=== PATIENT | female | born 1995 | race Caucasian/White ===

== ENCOUNTER 2021-07-22 14:27 | Emergency (ER) | payer SELFPAY ==
[2021-07-22 14:43] VITALS: BP 133/81; PULSE 90
[2021-07-22] MEDS ORDERED: methylPREDNISolone Sodium Succinate 125 MG/2 ML SDV IM ONE (15:30)
== END 2021-07-22 16:00 | disposition home or self-care (01) ==
LOC: DL.ED 14:27
DX: S39.012A Strain of muscle, fascia and tendon of lower back, initial encounter (principal); Z72.0 Tobacco use; X50.0XXA Overexertion from strenuous movement or load, initial encounter
CPT/HCPCS: 96372; 99283; J2930

== ENCOUNTER 2023-01-20 17:39 | Emergency (ER) | payer OTHER ==
[2023-01-20 18:00] VITALS: BP 126/64; PULSE 102
== END 2023-01-20 19:01 | disposition home or self-care (01) ==
LOC: DL.ED 17:39
DX: M25.562 Pain in left knee (principal); F17.210 Nicotine dependence, cigarettes, uncomplicated
CPT/HCPCS: 73562-LT; 99283

== ENCOUNTER 2023-04-16 11:45 | Observation (INO) | payer OTHER ==
[2023-04-16] MEDS ORDERED: Carboprost Tromethamine 250 MCG/1 ML Amp IM PRN (12:16)
[2023-04-16] MEDS ORDERED: Ondansetron 4 MG/2 ML SDV IVPUSH PRN (12:16)
[2023-04-16] MEDS ORDERED: Sodium Chloride 0.9% 10 ML Syringe FLUSH PRN ×2 (12:16→18:51)
[2023-04-16] MEDS ORDERED: Acetaminophen 325 MG Tab PO PRN (12:16)
[2023-04-16] MEDS ORDERED: Misoprostol 400 MCG (4 X 100 MCG TAB) RECTAL PRN (12:16)
[2023-04-16] MEDS ORDERED: Methylergonovine 0.2 MG/1 ML Amp IM PRN (12:16)
[2023-04-16] MEDS ORDERED: Lactated Ringers 1,000 ML IV ONE (12:16)
[2023-04-16] MEDS ORDERED: Tranexamic Acid 1,000 MG in Sodium Chloride 0.9% 100 ML IV PRN (12:16)
[2023-04-16] MEDS ORDERED: fentaNYL 100 MCG/2 ML SDV IVPUSH PRN (12:16)
[2023-04-16] MEDS ORDERED: Lidocaine 1% 30 ML SDV INJECT ONE (12:16)
[2023-04-16] MEDS ORDERED: Oxytocin/Normal Saline 30 UNIT/500 ML BAG IV SCH (12:30)
[2023-04-16] MEDS: Lactated Ringers 1,000 ML IV SCH ×2 (12:49→14:12)
[2023-04-16 13:01] LABS: HEMATOCRIT 35.9 % (37.0-47.0); HEMOGLOBIN 11.9 g/dL (12.0-16.0); MEAN CORPUSCULAR HEMOGLOBIN 30.9 pg (27.0-34.0); MEAN CORPUSCULAR HGB CONC 33.1 g/dL (33.0-35.0); MEAN CORPUSCULAR VOLUME 93.2 fL (80-100); RED BLOOD CELL COUNT 3.85 10^6/uL (4.2-5.4); WHITE BLOOD CELL COUNT,WBC 20.6 10^3/uL (5.0-10.0)
[2023-04-16] MEDS ORDERED: Bupivacaine 0.25% 10 ML SDV ONE (13:46)
[2023-04-16] MEDS ORDERED: fentaNYL 100 MCG/2 ML SDV ONE (13:46)
[2023-04-16] MEDS ORDERED: ePHEDrine 50 MG/ML SDV IVPUSH PRN (14:08)
[2023-04-16] MEDS ORDERED: Ropivacaine 200 MG in Premix Bag 1 BAG EPIDUR SCH (14:15)
[2023-04-16] MEDS: Phenylephrine HCl In 0.9% NaCl 1 MG/10 ML Syringe IVPUSH PRN ×2 (14:16→14:35)
[2023-04-16] MEDS ORDERED: Witch Hazel Medicated Pads 100/Jar TOP PRN (18:51)
[2023-04-16] MEDS ORDERED: Oxytocin 10 Units/1 ML SDV IM PRN (18:51)
[2023-04-16] MEDS ORDERED: Simethicone 80 MG Tab.Chew PO PRN (18:51)
[2023-04-16] MEDS ORDERED: Zolpidem 5 MG Tab PO PRN (18:51)
[2023-04-16] MEDS ORDERED: Benzocaine/Menthol 20%-0.5% Spray 78 GM Cannister TOP PRN (18:51)
[2023-04-16] MEDS: Docusate Sodium 100 MG Cap PO PRN (20:23)
[2023-04-17] MEDS: Ibuprofen 800 MG Tab PO PRN ×2 (01:20→09:32)
[2023-04-17 06:31] LABS: HEMOGLOBIN 10.4 g/dL (12.0-16.0); MEAN CORPUSCULAR HEMOGLOBIN 30.8 pg (27.0-34.0); MEAN CORPUSCULAR HGB CONC 32.5 g/dL (33.0-35.0); MEAN CORPUSCULAR VOLUME 94.7 fL (80-100); RED BLOOD CELL COUNT 3.38 10^6/uL (4.2-5.4); WHITE BLOOD CELL COUNT,WBC 20.5 10^3/uL (5.0-10.0)
[2023-04-17] MEDS ORDERED: Prenatal Multivitamin with Calcium/Folic Acid/Iron Tab PO SCH (09:00)
[2023-04-17] MEDS: Docusate Sodium 100 MG Cap PO PRN (09:33)
[2023-04-17 20:36] VITALS: BP 110/66; PULSE 58
== END 2023-04-17 19:56 | disposition home or self-care (01) ==
LOC: DL.OBCHECK 11:45 → DL.OB 12:16
PROVIDERS: ADMIT Family Medicine; ATTEND Family Medicine
DX: O69.81X0 Labor and delivery complicated by cord around neck, without compression, not applicable or unspecified (principal); Z37.0 Single live birth; O71.82 Other specified trauma to perineum and vulva; Z86.16 Personal history of COVID-19
CPT/HCPCS: 36415; 51702; 59409; 85027; A9270-GY; J2371; J2405; J2590; J7120

== ENCOUNTER 2023-05-01 17:47 | Emergency (ER) | payer OTHER ==
[2023-05-01 18:10] VITALS: BP 124/70; PULSE 82
== END 2023-05-01 19:12 | disposition home or self-care (01) ==
LOC: DL.ED 17:47
DX: M79.661 Pain in right lower leg (principal); F17.210 Nicotine dependence, cigarettes, uncomplicated; Z79.899 Other long term (current) drug therapy; Z86.16 Personal history of COVID-19
CPT/HCPCS: 93971; 99283

== ENCOUNTER 2023-09-30 18:38 | Emergency (ER) | payer OTHER ==
[2023-09-30] MEDS: Sodium Chloride 0.9% 1,000 ML IV ONE ×2 (19:00→20:20)
[2023-09-30] MEDS: Ondansetron 4 MG/2 ML SDV IVPUSH ONE (19:02)
[2023-09-30 19:03] LABS: BASOPHILS PERCENT AUTO 0.1 % (0.0-1.0); HEMATOCRIT 45.2 % (37.0-47.0); HEMOGLOBIN 15.2 g/dL (12.0-16.0); LYMPHOCYTES PERCENT AUTO 4.9 % (20.5-50.1); MEAN CORPUSCULAR HEMOGLOBIN 30.3 pg (27.0-34.0); MEAN CORPUSCULAR HGB CONC 33.6 g/dL (33.0-35.0); PLATELET COUNT,PLT 307 10^3/uL (150-450); RED BLOOD CELL COUNT 5.02 10^6/uL (4.2-5.4); WHITE BLOOD CELL COUNT,WBC 11.2 10^3/uL (5.0-10.0)
[2023-09-30] MEDS: HYDROmorphone 0.5 MG/0.5 ML Syringe IVPUSH ONE (19:06)
[2023-09-30 19:20] LABS: ALANINE AMINOTRANSFERASE,ALT 33 U/L (14-59); ALBUMIN 4.1 g/dL (3.4-5.0); ALKALINE PHOSPHATASE 86 U/L (46-116); ANION GAP 20.9 mEq/L (7-13); ASPARTATE AMNIOTRANSFERASE,AST 13 U/L (15-37); BILIRUBIN TOTAL 1.5 mg/dL (0.2-1.0); BLOOD UREA NITROGEN,BUN 16 mg/dL (7-18); BUN/CREATININE RATIO 13.8 (No establ ref range); C-REACTIVE PROTEIN 2.01 ng/dL (<=0.50); CALCIUM 9.7 mg/dL (8.5-10.1); CARBON DIOXIDE,CO2 19 mmol/L (21-32); CHLORIDE,CL 101 mmol/L (98-107); CREATININE 1.16 mg/dL (0.55-1.02); EST CRCL DRUG DOSING (CG) 69.59 mL/min; ESTIMATED GFR 65 mL/min (>=60); GLUCOSE RANDOM 118 mg/dL (70-99); LIPASE 28 U/L (16-77); MAGNESIUM 1.8 mg/dL (1.8-2.4); POTASSIUM,K 3.9 mmol/L (3.5-5.1); PROTEIN TOTAL,TP 8.4 g/dL (6.4-8.2); SODIUM,NA 137 mmol/L (136-145)
[2023-09-30 19:25] LABS: HCG QUALITATIVE,SERUM NEGATIVE (NEGATIVE); LACTIC ACID 3.3 mmol/L (0.4-2.0)
[2023-09-30] MEDS: Ondansetron 4 MG/2 ML SDV ONE (19:32)
[2023-09-30] MEDS: Sodium Chloride 0.9% 10 ML Syringe FLUSH PRN (19:34)
[2023-09-30 20:16] LABS: APPEARANCE,URINE CLEAR (CLEAR); BILIRUBIN,URINE NEGATIVE (NEGATIVE); COLOR,URINE YELLOW (YELLOW); GLUCOSE,URINE NEGATIVE (NEGATIVE); KETONES,URINE NEGATIVE (NEGATIVE); LEUKOCYTE ESTERASE,URINE NEGATIVE (NEGATIVE); NITRITE,URINE NEGATIVE (NEGATIVE); OCCULT BLOOD,URINE SMALL (NEGATIVE); PH,URINE 8.5 (5.0-9.0); PROTEIN,URINE NEGATIVE (NEGATIVE); UROBILINOGEN,URINE 0.2 mg/dL (0.2-1.0)
[2023-09-30 20:24] LABS: AMORPHOUS SEDIMENT,URINE FEW /HPF (NOT SEEN); BACTERIA,URINE FEW /HPF (0-FEW/HPF); EPITHELIAL CELLS,URINE MODERATE /HPF (NOT SEEN); MUCUS,URINE FEW /LPF (NOT SEEN); RBC,URINE 0-5 /HPF (0-5); WBC,URINE 0-5 /HPF (0-5/HPF)
[2023-09-30 20:46] VITALS: PULSE 82
[2023-09-30] MEDS: Iopamidol 612 MG/ML 100 ML Bottle IVPUSH ONE (20:53)
[2023-09-30 21:13] VITALS: BP 101/58
[2023-09-30] MEDS: Take Home: Ondansetron 4 MG Tab.DIS, 5 Tab Pack PO ONE (21:37)
== END 2023-09-30 21:41 | disposition home or self-care (01) ==
LOC: DL.ED 18:38
DX: K52.9 Noninfective gastroenteritis and colitis, unspecified (principal); Z86.16 Personal history of COVID-19
CPT/HCPCS: 36415; 74177; 80053; 81001; 83605; 83690; 83735; 84703; 85025; 86140; 96361; 96374; 96375; 99284; J1170; J2405; J7030; Q0162; Q9967; J3490

== ENCOUNTER 2023-12-12 09:28 | Emergency (ER) | payer OTHER ==
[2023-12-12 10:08] VITALS: BP 109/86; PULSE 85
[2023-12-12 10:33] LABS: APPEARANCE,URINE CLEAR (CLEAR); BILIRUBIN,URINE NEGATIVE (NEGATIVE); COLOR,URINE YELLOW (YELLOW); GLUCOSE,URINE NEGATIVE (NEGATIVE); KETONES,URINE NEGATIVE (NEGATIVE); LEUKOCYTE ESTERASE,URINE NEGATIVE (NEGATIVE); NITRITE,URINE NEGATIVE (NEGATIVE); OCCULT BLOOD,URINE TRACE-INTACT (NEGATIVE); PROTEIN,URINE NEGATIVE (NEGATIVE); UROBILINOGEN,URINE 0.2 mg/dL (0.2-1.0)
[2023-12-12 10:43] LABS: AMORPHOUS SEDIMENT,URINE FEW /HPF (NOT SEEN); BACTERIA,URINE MODERATE /HPF (0-FEW/HPF); EPITHELIAL CELLS,URINE MODERATE /HPF (NOT SEEN); MUCUS,URINE MODERATE /LPF (NOT SEEN); RBC,URINE 0-5 /HPF (0-5); WBC,URINE 0-5 /HPF (0-5/HPF)
[2023-12-12 11:01] LABS: BASOPHILS PERCENT AUTO 0.3 % (0.0-1.0); EOSINOPHILS PERCENT AUTO 0.7 % (1.0-3.0); HEMATOCRIT 40.7 % (37.0-47.0); HEMOGLOBIN 13.4 g/dL (12.0-16.0); LYMPHOCYTES PERCENT AUTO 21.3 % (20.5-50.1); MEAN CORPUSCULAR HEMOGLOBIN 30.3 pg (27.0-34.0); MEAN CORPUSCULAR HGB CONC 32.9 g/dL (33.0-35.0); MEAN CORPUSCULAR VOLUME 92.1 fL (80-100); MONOCYTES PERCENT AUTO 8.4 % (2-8); NEUTROPHILS PERCENT AUTO 69.3 % (42.2-75.2); PLATELET COUNT,PLT 263 10^3/uL (150-450); RED BLOOD CELL COUNT 4.42 10^6/uL (4.2-5.4); WHITE BLOOD CELL COUNT,WBC 7.1 10^3/uL (5.0-10.0)
[2023-12-12 11:11] LABS: A/G RATIO 0.9; ALBUMIN 3.6 g/dL (3.4-5.0); ANION GAP 12.1 mEq/L (7-13); BILIRUBIN TOTAL 0.3 mg/dL (0.2-1.0); BUN/CREATININE RATIO 12.6 (No establ ref range); C-REACTIVE PROTEIN 0.76 ng/dL (<=0.50); CALCIUM 9.1 mg/dL (8.5-10.1); CREATININE 0.95 mg/dL (0.55-1.02); EST CRCL DRUG DOSING (CG) 84.97 mL/min; MAGNESIUM 2.1 mg/dL (1.8-2.4); POTASSIUM,K 4.1 mmol/L (3.5-5.1); PROTEIN TOTAL,TP 7.4 g/dL (6.4-8.2)
[2023-12-12 11:14] LABS: LACTIC ACID 0.6 mmol/L (0.4-2.0)
[2023-12-12] MEDS: Ketorolac 30 MG/ML SDV IVPUSH ONE (11:26)
[2023-12-12] MEDS: Acetaminophen 500 MG Tab PO ONE (11:26)
[2023-12-12] MEDS: Dexamethasone 4 MG/ML SDV IVPUSH ONE (11:51)
== END 2023-12-12 11:52 | disposition home or self-care (01) ==
LOC: DL.ED 09:28
DX: K50.119 Crohn's disease of large intestine with unspecified complications (principal); F17.210 Nicotine dependence, cigarettes, uncomplicated; Z86.16 Personal history of COVID-19
CPT/HCPCS: 36415; 80053; 81001; 81025; 82150; 83605; 83690; 83735; 85025; 86140; 96374; 96375; 99284; 99284-25; A9270-GY; J1100; J1885

== ENCOUNTER 2023-12-23 01:00 | Inpatient (IN) | payer OTHER ==
[2023-12-23] MEDS: Sodium Chloride 0.9% 10 ML Syringe FLUSH PRN ×2 (01:21→01:54)
[2023-12-23 01:33] LABS: BASOPHILS PERCENT AUTO 0.1 % (0.0-1.0); EOSINOPHILS PERCENT AUTO 0.1 % (1.0-3.0); HEMATOCRIT 39.8 % (37.0-47.0); HEMOGLOBIN 13.1 g/dL (12.0-16.0); MEAN CORPUSCULAR HEMOGLOBIN 29.8 pg (27.0-34.0); MEAN CORPUSCULAR HGB CONC 32.9 g/dL (33.0-35.0); MEAN CORPUSCULAR VOLUME 90.5 fL (80-100); MONOCYTES PERCENT AUTO 7.1 % (2-8); NEUTROPHILS PERCENT AUTO 85.7 % (42.2-75.2); PLATELET COUNT,PLT 271 10^3/uL (150-450)
[2023-12-23] MEDS: Morphine 2 MG/ML SYRINGE IVPUSH ONE (01:44)
[2023-12-23] MEDS ORDERED: Sodium Chloride 0.9% 10 ML Syringe FLUSH PRN (01:45)
[2023-12-23] MEDS: Lactated Ringers 1,000 ML IV SCH (01:50)
[2023-12-23 01:56] LABS: LACTIC ACID 0.9 mmol/L (0.4-2.0)
[2023-12-23 02:03] LABS: ALBUMIN 3.9 g/dL (3.4-5.0); ANION GAP 14.6 mEq/L (7-13); BILIRUBIN TOTAL 1.1 mg/dL (0.2-1.0); BUN/CREATININE RATIO 15.7 (No establ ref range); C-REACTIVE PROTEIN 2.81 ng/dL (<=0.50); CALCIUM 9.2 mg/dL (8.5-10.1); CREATININE 1.02 mg/dL (0.55-1.02); EST CRCL DRUG DOSING (CG) 79.14 mL/min; MAGNESIUM 1.7 mg/dL (1.8-2.4); POTASSIUM,K 3.6 mmol/L (3.5-5.1); PROTEIN TOTAL,TP 7.9 g/dL (6.4-8.2)
[2023-12-23] MEDS: Piperacillin/Tazobactam 4.5 GM in Sodium Chloride 0.9% 100 ML IV ONE (02:05)
[2023-12-23 02:12] LABS: APPEARANCE,URINE CLEAR (CLEAR); BILIRUBIN,URINE NEGATIVE (NEGATIVE); COLOR,URINE YELLOW (YELLOW); GLUCOSE,URINE NEGATIVE (NEGATIVE); KETONES,URINE NEGATIVE (NEGATIVE); LEUKOCYTE ESTERASE,URINE NEGATIVE (NEGATIVE); NITRITE,URINE NEGATIVE (NEGATIVE); OCCULT BLOOD,URINE TRACE-INTACT (NEGATIVE); PROTEIN,URINE NEGATIVE (NEGATIVE); UROBILINOGEN,URINE 0.2 mg/dL (0.2-1.0)
[2023-12-23 02:19] LABS: BACTERIA,URINE RARE /HPF (0-FEW/HPF); EPITHELIAL CELLS,URINE FEW /HPF (NOT SEEN); WBC,URINE NOT SEEN /HPF (0-5/HPF)
[2023-12-23] MEDS: Iopamidol 612 MG/ML 100 ML Bottle IVPUSH ONE (02:25)
[2023-12-23] MEDS: HYDROmorphone 1 MG/ML Syringe IVPUSH ONE ×2 (03:23→05:21)
[2023-12-23] MEDS: Ondansetron 4 MG/2 ML SDV IVPUSH ONE (03:32)
[2023-12-23] MEDS: methylPREDNISolone Sodium Succinate 40 MG/1 ML SDV IVPUSH STA (05:00)
[2023-12-23] MEDS ORDERED: hydrALAZINE 20 MG/ML SDV IVPUSH PRN (05:57)
[2023-12-23] MEDS ORDERED: Metoprolol Tartrate 5 MG/5 ML SDV IVPUSH PRN (05:57)
[2023-12-23] MEDS ORDERED: Ondansetron 4 MG/2 ML SDV IVPUSH PRN (06:08)
[2023-12-23] MEDS: LORazepam 2 MG/ML SDV IVPUSH ONE (06:08)
[2023-12-23] MEDS ORDERED: Albuterol/Ipratropium 3.0-0.5 MG/3 ML Neb Soln NEB PRN (06:08)
[2023-12-23] MEDS ORDERED: Acetaminophen 325 MG Tab PO PRN (06:08)
[2023-12-23] MEDS ORDERED: Metoclopramide 10 MG/2 ML SDV IV PRN (06:08)
[2023-12-23] MEDS ORDERED: Temazepam 15 MG Cap PO PRN (06:08)
[2023-12-23] MEDS ORDERED: Naloxone 2 MG/2 ML Syringe IVPUSH PRN (06:08)
[2023-12-23] MEDS: Scopalamine 1mg/3day Transdermal Patch TOP ONE (06:24)
[2023-12-23] MEDS: Pantoprazole 40 MG Vial IVPUSH ONE (06:25)
[2023-12-23] MEDS: Piperacillin/Tazobactam 4.5 GM in Sodium Chloride 0.9% 100 ML IV SCH ×2 (07:28→09:33)
[2023-12-23] MEDS: Saccharomyces Boulardii (Probiotic) 250 MG Cap PO SCH (09:36)
[2023-12-23] MEDS: oxyCODONE 5 MG Tab PO PRN (09:44)
[2023-12-23] MEDS ORDERED: Piperacillin/Tazobactam 4.5 GM in Sodium Chloride 0.9% 100 ML IV SCH (12:00)
[2023-12-23] MEDS: Morphine 2 MG/ML SYRINGE IVPUSH PRN (13:12)
[2023-12-23] MEDS: Pantoprazole 40 MG Tab.CR PO SCH (16:22)
[2023-12-23] MEDS: predniSONE 20 MG Tab PO SCH (17:11)
[2023-12-23] MEDS: Dextrose 5%-0.9% NaCl 1,000 ML IV SCH (21:32)
[2023-12-24 06:02] LABS: BASOPHILS PERCENT AUTO 0.1 % (0.0-1.0); HEMATOCRIT 35.6 % (37.0-47.0); HEMOGLOBIN 11.4 g/dL (12.0-16.0); MEAN CORPUSCULAR HEMOGLOBIN 29.8 pg (27.0-34.0); MEAN CORPUSCULAR VOLUME 93.2 fL (80-100); MONOCYTES PERCENT AUTO 4.3 % (2-8); NEUTROPHILS PERCENT AUTO 89.6 % (42.2-75.2); PLATELET COUNT,PLT 227 10^3/uL (150-450); RED BLOOD CELL COUNT 3.82 10^6/uL (4.2-5.4); WHITE BLOOD CELL COUNT,WBC 16.4 10^3/uL (5.0-10.0)
[2023-12-24 06:45] LABS: ALBUMIN 3.1 g/dL (3.4-5.0); ANION GAP 12.9 mEq/L (7-13); BILIRUBIN TOTAL 0.9 mg/dL (0.2-1.0); BUN/CREATININE RATIO 12.1 (No establ ref range); C-REACTIVE PROTEIN 10.17 ng/dL (<=0.50); CALCIUM 8.9 mg/dL (8.5-10.1); CREATININE 0.91 mg/dL (0.55-1.02); EST CRCL DRUG DOSING (CG) 88.7 mL/min; MAGNESIUM 2.3 mg/dL (1.8-2.4); POTASSIUM,K 3.9 mmol/L (3.5-5.1); PROTEIN TOTAL,TP 6.9 g/dL (6.4-8.2)
[2023-12-24 06:49] LABS: A/G RATIO 0.82
[2023-12-24] MEDS ORDERED: Midodrine 5 MG Tab PO PRN (08:06)
[2023-12-24] MEDS ORDERED: Sodium Chloride 0.9% 100 ML IV PRN (08:10)
[2023-12-24] MEDS: HYDROmorphone 1 MG/ML Syringe IVPUSH PRN (14:26)
[2023-12-25 06:12] LABS: BASOPHILS PERCENT AUTO 0.1 % (0.0-1.0); HEMATOCRIT 35.5 % (37.0-47.0); HEMOGLOBIN 11.4 g/dL (12.0-16.0); LYMPHOCYTES PERCENT AUTO 9.8 % (20.5-50.1); MEAN CORPUSCULAR HEMOGLOBIN 30.3 pg (27.0-34.0); MEAN CORPUSCULAR HGB CONC 32.1 g/dL (33.0-35.0); MEAN CORPUSCULAR VOLUME 94.4 fL (80-100); NEUTROPHILS PERCENT AUTO 84.1 % (42.2-75.2); PLATELET COUNT,PLT 238 10^3/uL (150-450); RED BLOOD CELL COUNT 3.76 10^6/uL (4.2-5.4); WHITE BLOOD CELL COUNT,WBC 11.1 10^3/uL (5.0-10.0)
[2023-12-25 06:54] LABS: ALBUMIN 2.9 g/dL (3.4-5.0); ANION GAP 11.9 mEq/L (7-13); BILIRUBIN TOTAL 0.4 mg/dL (0.2-1.0); BUN/CREATININE RATIO 15.1 (No establ ref range); C-REACTIVE PROTEIN 3.87 ng/dL (<=0.50); CREATININE 0.93 mg/dL (0.55-1.02); EST CRCL DRUG DOSING (CG) 86.8 mL/min; MAGNESIUM 2.3 mg/dL (1.8-2.4); POTASSIUM,K 3.9 mmol/L (3.5-5.1); PROTEIN TOTAL,TP 6.7 g/dL (6.4-8.2)
[2023-12-25 07:04] LABS: A/G RATIO 0.76
[2023-12-25 11:53] VITALS: BP 115/62; PULSE 52
== END 2023-12-25 13:55 | disposition home or self-care (01) | DRG 872 ==
LOC: DL.ED 01:00 → DL.MS 05:04
PROVIDERS: ADMIT Internal Medicine; ATTEND Internal Medicine
DX: A41.9 Sepsis, unspecified organism (principal); E87.1 Hypo-osmolality and hyponatremia; K50.90 Crohn's disease, unspecified, without complications; K52.9 Noninfective gastroenteritis and colitis, unspecified; E66.9 Obesity, unspecified; E83.42 Hypomagnesemia; R73.9 Hyperglycemia, unspecified; E80.6 Other disorders of bilirubin metabolism; F17.210 Nicotine dependence, cigarettes, uncomplicated; Z86.16 Personal history of COVID-19; Z79.52 Long term (current) use of systemic steroids; Z79.899 Other long term (current) drug therapy; Z68.39 Body mass index [BMI] 39.0-39.9, adult
CPT/HCPCS: 36415; 74177; 80053; 81001; 81025; 83605; 83690; 83735; 85025; 86140; 87040; 96365; 96375; 99223; 99233; 99239; 99284; 99285-25; A9270-GY; J1170; J2060; J2270; J2405; J2470; J2543; J2919; J3490; J7042; J7120; J7512; Q9967

== ENCOUNTER 2024-10-28 14:56 | Inpatient (IN) | payer BC, OTHER ==
[2024-10-28] MEDS ORDERED: Sodium Chloride 0.9% 10 ML Syringe FLUSH PRN (16:41)
[2024-10-28] MEDS ORDERED: Carboprost Tromethamine 250 MCG/1 ML Amp IM PRN (16:41)
[2024-10-28] MEDS ORDERED: Ondansetron 4 MG/2 ML SDV IVPUSH PRN (16:41)
[2024-10-28] MEDS ORDERED: Oxytocin/Lactated Ringers 30 UNIT/500 ML BAG IV SCH (16:45)
[2024-10-28 16:58] LABS: PLATELET COUNT,PLT 200.0 10^3/uL (150-450); RED BLOOD CELL COUNT 3.9 10^6/uL (4.2-5.4); WHITE BLOOD CELL COUNT,WBC 10.1 10^3/uL (5.0-10.0)
[2024-10-28] MEDS ORDERED: Oxytocin/Normal Saline 30 UNIT/500 ML BAG ONE ×2 (21:38→21:58)
[2024-10-28] MEDS: Lactated Ringers 1,000 ML IV ONE (21:59)
[2024-10-28] MEDS: Lactated Ringers 1,000 ML IV SCH (21:59)
[2024-10-28] MEDS ORDERED: ePHEDrine 50 MG/ML SDV IVPUSH PRN (22:07)
[2024-10-28] MEDS ORDERED: diphenhydrAMINE 50 MG/ML SDV IVPUSH PRN (22:07)
[2024-10-29] MEDS: Oxytocin/Normal Saline 30 UNIT/500 ML BAG IV SCH (00:56)
[2024-10-29] MEDS ORDERED: Ketorolac 30 MG/ML SDV ONE (01:19)
[2024-10-29] MEDS ORDERED: ePHEDrine 50 MG/ML SDV ONE (01:20)
[2024-10-29] MEDS ORDERED: Ondansetron 4 MG/2 ML SDV ONE (01:21)
[2024-10-29] MEDS ORDERED: Dexamethasone 4 MG/ML SDV ONE (01:22)
[2024-10-29] MEDS: Promethazine 25 MG/ML SDV IM ONE ×2 (01:48→10:39)
[2024-10-29] MEDS: Lactated Ringers 1,000 ML IV SCH (03:00)
[2024-10-29] MEDS: Ondansetron 4 MG/2 ML SDV IVPUSH PRN (06:31)
[2024-10-29] MEDS: Ketorolac 30 MG/ML SDV IVPUSH SCH (06:33)
[2024-10-29 06:39] LABS: PLATELET COUNT,PLT 175.0 10^3/uL (150-450); RED BLOOD CELL COUNT 3.67 10^6/uL (4.2-5.4); WHITE BLOOD CELL COUNT,WBC 12.5 10^3/uL (5.0-10.0)
[2024-10-29] MEDS: Prenatal Multivitamin with Calcium/Folic Acid/Iron Tab PO SCH (09:54)
[2024-10-29] MEDS: Scopalamine 1mg/3day Transdermal Patch TRDERM PRN (13:01)
[2024-10-29] MEDS: Ketorolac 30 MG/ML SDV IVPUSH ONE (18:16)
[2024-10-30] MEDS: Acetaminophen/oxyCODONE 325-5 MG Tab PO PRN ×2 (00:13→12:46)
[2024-10-30] MEDS ORDERED: Ondansetron 4 MG/2 ML SDV IV ONE (14:17)
[2024-10-30] MEDS ORDERED: Ketorolac 30 MG/ML SDV IVPUSH ONE (14:17)
[2024-10-30] MEDS ORDERED: Ropivacaine 100 ML EPIDUR ONE (14:17)
[2024-10-30] MEDS ORDERED: Oxytocin/Normal Saline 30 UNIT/500 ML BAG IV ONE (14:17)
[2024-10-30] MEDS ORDERED: Morphine PF 10 MG/10 ML SDV EPIDUR ONE (14:17)
[2024-10-30] MEDS ORDERED: Dexamethasone 4 MG/ML SDV IV ONE (14:17)
[2024-10-30] MEDS ORDERED: fentaNYL 100 MCG/2 ML SDV EPIDUR ONE (14:17)
[2024-10-30] MEDS ORDERED: ePHEDrine 50 MG/ML SDV IV ONE (14:17)
[2024-10-31 07:30] VITALS: BP 120/60; PULSE 77
== END 2024-10-31 09:14 | disposition home or self-care (01) | DRG 540 ==
LOC: DL.OBCHECK 14:56 → DL.OB 16:41 → OBSVTOIN 10-29 00:06
PROVIDERS: ADMIT Family Medicine; ATTEND Family Medicine
PROC: 10S0XZZ Reposition Products of Conception, External Approach (ICD-10-PCS; principal; 2024-10-29)
PROC: 10D00Z1 Extraction of Products of Conception, Low, Open Approach (ICD-10-PCS; 2024-10-29)
PROC: 4A1HXCZ Monitoring of Products of Conception, Cardiac Rate, External Approach (ICD-10-PCS; 2024-10-29)
DX: O32.1XX0 Maternal care for breech presentation, not applicable or unspecified (principal); Z3A.38 38 weeks gestation of pregnancy; Z37.9 Outcome of delivery, unspecified
CPT/HCPCS: 36415; 76815; 85027; 86850; 86900; 86901; A9270-GY; J1100; J1885; J2274; J2405; J2550; J2590; J2765; J2795; J3010; J3490; J7120